=== PATIENT | female | born 1995 | race Two or more races ===

== ENCOUNTER 2017-07-11 14:24 | Emergency (ER) | payer MEDICAID ==
[~2017-07-11] VITALS: Ht 162.6 cm; Wt 59.0 kg
[2017-07-11] MEDS ORDERED: BENADRYL25 MG ORAL (15:20)
[2017-07-11] MEDS ORDERED: PREDNISONE20 MG ORAL (15:20)
[2017-07-11] MEDS ORDERED: EPIPEN 2-P0.3 MG/0.3 IM (15:20)
[2017-07-11 15:38] VITALS: BP 118/64
[2017-07-11 15:43] VITALS: BP 118/64
--- NOTE | 2017-07-11 15:53 | Emergency Room Report ---
History of Present Illness General Chief Complaint: Allergic Reaction Source: Patient Present Illness HPI The patient is a 21-year-old female with a history of allergies to legumes brought in by ambulance for possible allergic reaction. She states that she was having a soup which she found out had beans in it. She began to have symptoms including itchy skin and tingling of the lips. This occurred approximately one hour prior to arrival. She took Benadryl approximately 30 minutes prior to arrival and states that she is feeling better. 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 She states that this does not feel the same. She denies any other symptoms at this time including shortness of breath, difficulty swallowing, facial swelling, rash Allergies: Coded Allergies: COATES (Unverified Allergy, Unknown, 07/11/17) PEANUT (Unverified Allergy, Unknown, 07/11/17) Uncoded Allergies: BEANS (Allergy, Unknown, 07/11/17) PEANUTS (Allergy, Unknown, 07/11/17) Patient History Past Medical History: see triage record Pertinent Family History: none Last Menstrual Period: 06/22/17 Reviewed Nursing Documentation: PMH: Agreed, PSxH: Agreed Nursing Documentation-PMH Past Medical History: No History, Except For History Of Psychiatric Problem: Yes - Anxiety Review of Systems All Other Systems: negative except mentioned in HPI Physical Exam Vital Signs Date Time Temp Pulse Resp B/P (MAP) Pulse Ox O2 Delivery O2 Flow Rate FiO2 07/11/17 14:16 98.6 81 18 122/71 100 Room Air Sp02 EP Interpretation: reviewed, normal General Appearance: no apparent distress, alert, GCS 15, non-toxic Head: normocephalic, atraumatic Eyes: bilateral eye normal inspection, bilateral eye PERRL ENT: hearing grossly normal, normal pharynx, no angioedema, normal voice Neck: full range of motion, supple/symm/no masses Respiratory: chest non-tender, lungs clear, normal breath sounds, no respiratory distress, no accessory muscle use, no wheezing, speaking full sentences Cardiovascular #1: regular rate, rhythm, no edema Gastrointestinal: normal bowel sounds, non tender, soft, non-distended, no guarding, no rebound Musculoskeletal: back normal, gait/station normal, normal range of motion, non- tender Neurologic: alert, oriented x3, responsive, motor strength/tone normal, sensory intact, speech normal Psychiatric: judgement/insight normal, memory normal, mood/affect normal, no suicidal/homicidal ideation Skin: normal color, no rash, warm/dry, well hydrated Medical Decision Making PA Attestation Dr. Villatoro is my supervising physician. Patient management was discussed with my supervising physician Diagnostic Impression: Primary Impression: Allergic reaction to food Qualified Codes: T78.1XXA - Other adverse food reactions, not elsewhere classified, initial encounter ER Course The patient is a 21-year-old female with a history of allergies to legumes brought in by ambulance for possible allergic reaction. Differential diagnosis considered not limited to: Anaphylaxis, food allergy, angioedema, among others Physical exam: Vitals are stable. No apparent distress HEENT exam is unremarkable. No angioedema. No facial swelling. Oropharynx is patent. Lungs are clear to auscultation bilaterally RRR Skin is warm and dry. No rash The patient is given prednisone here and is monitored. She is feeling better. She'll be discharged home with a prescription for Benadryl and prednisone. She is given refill for her EpiPen. ER precautions are given Last Vital Signs Date Time Temp Pulse Resp B/P (MAP) Pulse Ox O2 Delivery O2 Flow Rate FiO2 07/11/17 15:43 98.6 83 15 118/64 100 Room Air Status: improved Disposition: HOME, SELF-CARE Condition: Improved Scripts Epinephrine (Epipen 2-Gume) 0.3 Mg/0.3 Ml Auto.injct 0.3 MG IM PRN, #1 EA Prov: TERZIAN,JAMSHID P.A. 07/11/17 Prednisone* (PREDNISONE*) 20 Mg Tablet 40 MG ORAL DAILY, #6 TAB Prov: TERZIAN,JAMSHID P.A. 07/11/17 Diphenhydramine Hcl* (BENADRYL*) 25 Mg Capsule 25 MG ORAL Q6H Y for Itching, #10 CAP Prov: TERZIAN,JAMSHID P.A. 07/11/17 Referrals: NOT CHOSEN [facility]/,REFERRING (PCP) Patient Instructions: Food Allergy, Anaphylactic Reaction Additional Instructions: I discussed my findings with the patient. All questions and concerns have been answered. Treatment and medication compliance have been addressed. I advised the patient that they need to follow up with PMD in 3-5 days. Return to ED if symptoms worsen, new symptoms arise such as shortness of breath, facial swelling , difficulty swallowing, rash, or if needed for any reason. Patient verbalized understanding of discharge instructions. JAMSHID SALGADO Jul 11, 2017 15:53
== END 2017-07-11 15:43 | disposition home or self-care (01) ==
LOC: EDBD 14:24 → EMR 15:35
DX: T78.1XXA Other adverse food reactions, not elsewhere classified, initial encounter (principal); X58.XXXA Exposure to other specified factors, initial encounter; F41.9 Anxiety disorder, unspecified
CPT/HCPCS: 99284; J7512